=== PATIENT | male | born 1975 | race Hispanic/Latino ===

== ENCOUNTER 2019-02-10 09:34 | Emergency (ER) | payer OTHER, SELFPAY ==
[2019-02-10] VITALS (8 sets, daily range): BP systolic 105–136; BP diastolic 50–79; PULSE 59–81; RESP 16–25; TEMP 36.8; O2SAT 95–100; BMI 34.9
--- NOTE | 2019-02-10 09:59 | DI.RAD.S_ITS ---
PROCEDURE: XR CHEST 1V INDICATIONS: chest pain TECHNIQUE: One view of the chest was acquired. COMPARISON: None. FINDINGS: Surgical changes and devices: None. Lungs and pleura: Lungs are clear. No pleural effusions or pneumothorax. Mediastinum: Mediastinal contours appear normal. Heart size is normal. Bones and chest wall: No suspicious bony lesions. Overlying soft tissues appear unremarkable. IMPRESSION: Mildly reduced inspiratory line, source of chest pain seen. Dictated by: Sergio Mcgee M.D. on 02/10/2019 at 10:12 Approved by: Sergio Mcgee M.D. on 02/10/2019 at 10:12
[2019-02-10 10:03] LABS: Add Manual Diff / Slide Review NO; Basophils Absolute Auto 0 /uL (0-100); Basophils Percent Auto 0.6 % (0-2); Eosinophils Absolute Auto 200 /uL (0-450); Eosinophils Percent Auto 2.7 % (2-4); Hematocrit 43.9 % (41-53); Hemoglobin 15.3 g/dL (13.5-17.5); Lymphocytes Absolute Auto 2100 /uL (1100-4500); Lymphocytes Percent Auto 32.1 % (25-40); Mean Corpuscular HGB Conc 34.7 % (30-36); Mean Corpuscular Hemoglobin 29.2 PG (26-34); Monocytes Absolute Auto 400 /uL (0-900); Monocytes Percent Auto 6.4 % (3-14); Neutrophils Absolute Auto 3800 /uL (1500-7000); Neutrophils Percent Auto 58.2 % (50-75); Platelet Count 223 X10^3/uL (150-400); Red Blood Cell Count 5.23 X10^6/uL (4.5-5.9); Red Cell Distribution Width 13.2 % (11.6-14.8); White Blood Cell Count 6.5 X10^3/uL (4.5-11.0)
[2019-02-10 10:06] LABS: Prothrombin Time 11.2 SECONDS (10.1-12.7)
[2019-02-10 10:09] LABS: PTT Partial Thromboplastin Tim 31 SECONDS (26.4-36.2)
[2019-02-10] MEDS: ASPIRIN 81 MG TAB 324 MG PO (10:10)
[2019-02-10 10:12] LABS: Alanine Aminotransferase 48 IU/L (21-72); Albumin 4.6 g/dL (3.5-5.0); Albumin Globulin Ratio 1.5 (1.0-2.8); Alkaline Phosphatase 68 U/L (38-126); Aspartate Aminotransferase 32 IU/L (17-59); Bilirubin Total 0.8 mg/dL (0.2-1.3); Blood Urea Nitrogen 14 mg/dL (9-20); Calcium 9.5 mg/dL (8.4-10.2); Carbon Dioxide 28 mmol/L (22-32); Chloride 102 mmol/L (98-107); Creatine Kinase 114 U/L (55-170); Estimated Glomerular Filt Rate > 60.0 mL/min (>60); Glucose 107 mg/dL (70-100); HEMOLYSIS < 15 (0-50); Lipase 60 U/L (23-300); Sodium 138 mmol/L (137-145); Total Protein 7.6 g/dL (6.3-8.2)
[2019-02-10] MEDS: NITROGLYCERIN 0.4 MG SL TAB SL ×2 (10:13→11:29)
[2019-02-10 10:23] LABS: Troponin I < 0.012 ng/mL (0.01-0.034)
[2019-02-10 10:27] LABS: CKMB % Relative Index 0.3 % (1.5-5.0); Creatine Kinase MB 0.35 ng/mL (<2.37)
--- NOTE | 2019-02-10 11:01 | ED.CHESTPAIN ---
HPI - Chest Pain General Chief Complaint: Chest Pain Stated Complaint: Chest Pain /Dizziness Time Seen by Provider: 02/10/19 10:51 Source: patient Mode of arrival: ambulatory Limitations: no limitations History of Present Illness HPI narrative: This is a 43-year-old male comes to the emergency department with complaint of chest pain. Patient states it feels like a pressure, the left side of his chest. Does not really radiate anywhere. Patient states it started Friday night. He was just walking around at [facility]. He states he was any been hiking or doing anything physical. He states sort of waxes and wanes in intensity but is been present the entire time. There do not seem to be any exacerbating factors, exertion, movement, eating food and the seemed to make anything worse. He has not felt short of breath. He denies any issues with bowel movements, issues with urination. No swelling in his lower extremities. He will feel little bit dizzy when it is intense and a little bit sweaty. Occasionally a little nauseated. He does not recall having any major strains or lifting heavy equipment. He did have his physical readiness test a week ago. He does not have any past medical history. He has not had any prior surgeries. He did donate bone marrow to another individual but has had no other interventions. He denies any family history in his parents or siblings for cardiac, pulmonary or blood clots. He has a paternal grandfather who had heart problems. He does not smoke. He does drink alcohol typically on the weekends. He states it is very variable home much. He denies any illicit. He is in the [employer]. A prior EKG because of prior job assignment. Related Data Home Medications Medication Instructions Recorded Confirmed No Known Home Medications 02/10/19 02/10/19 Allergies Allergy/AdvReac Type Severity Reaction Status Date / Time No Known Drug Allergies Allergy Verified 02/10/19 10:04 Review of Systems Review of Systems ROS Unobtainable: All systems reviewed & are unremarkable except as noted in HPI and below Constitutional Denies chills and Denies frequent falls Eyes Reports blurry vision (with symptoms.) ENT Ears, Nose, Mouth, and Throat: Denies nasal congestion Cardiovascular Reports chest pain (Not associated with rest or activity.), Reports diaphoresis, Denies syncope, Denies rapid heart rate, Denies edema, Reports lightheadedness, Reports radiating jaw, neck or arm pain (tingling), Denies palpitations, Denies dyspnea and Denies dyspnea on exertion Respiratory Denies chest congestion, Denies cough, Denies pain on inspiration, Denies pain with cough, Denies dyspnea, Denies dyspnea on exertion and Denies wheezing Gastrointestinal Gastrointestinal: Denies abdominal pain, Denies change in bowel habits, Denies diarrhea, Reports nausea (Occasional with symptoms) and Denies vomiting Genitourinary Denies hematuria, Denies dysuria, Denies flank pain, Denies urinary frequency, Denies urinary incontinence and Denies urinary urgency Musculoskeletal Denies back pain Integumentary/Breasts Denies rash and Denies unusual bruising Neurologic Denies syncope and Denies frequent falls Endocrine Denies palpitations Allergic/Immunologic Denies wheezing PFSH Surgical History (Updated 02/10/19 @ 11:06 by Nohemy Zarco DO) Bone marrow donor (Inactive) Social History (Updated 02/10/19 @ 11:07 by Nohemy Zarco DO) Smoking Status: Never smoker alcohol intake: current substance use type: does not use Social History (Updated 02/10/19 @ 11:07 by Nohemy Zarco DO) Smoking Status: Never smoker alcohol intake: current substance use type: does not use Exam Narrative Exam Narrative: GENERAL: Alert and oriented x three, slightly overweight but well-appearing male in no acute distress. HEENT: Head normocephalic, atraumatic, EOMI, pupils reactive, face symmetric, moist mucous membranes NECK: Supple, full range of motion CARDIOVASCULAR: Regular rate and rhythm without murmurs, rubs or gallops. No edema bilateral lower extremities. Nontender to palpation. RESPIRATORY: Breath sounds equal bilaterally, no wheezes rales or rhonchi. ABDOMEN: Soft, nontender. Normoactive bowel sounds all 4 quadrants. No guarding or rebound, rigidity, no mass : No CVA tenderness EXTREMITIES: Normal range of motion, no clubbing or edema. Neurovascularly intact NEUROLOGICAL: Cranial nerves II through XII grossly intact. Moving all extremities SKIN: Warm, dry, no petechiae, no rashes or lesions. Initial Vital Signs Initial Vital Signs: Vital Signs Temperature 98.3 F 02/10/19 09:36 Pulse Rate 67 02/10/19 09:36 Respiratory Rate 20 02/10/19 09:36 Blood Pressure 136/79 05/29/19 09:36 Pulse Oximetry 98 02/10/19 09:36 Scores HEART Score Heart Score history: Moderately Suspicious Heart Score EKG: Non-Specific repolarization disturbance Heart Score Age: < 45 years old Heart Score risk factors: No known risk factors Heart Score troponin: < or = to normal limit Heart Score Total: 2 Course Orders Ordered: ED Orders 02/10/19 09:49 Complete Blood Count AUTO DIFF Stat Comprehensive Metabolic Panel Stat D Dimer Stat Lipase Stat Partial Thromboplastin Time Stat Prothrombin Time INR Stat Troponin & CK Cardiac Panel Stat 02/10/19 09:59 XR chest 1V Stat 02/10/19 10:11 EKG-12 Lead Routine Discontinued Medications Aspirin (Aspirin Chew) 324 mg PO NOW ONE Stop: 02/10/19 10:06 Last Admin: 02/10/19 10:10 Dose: 324 mg Nitroglycerin (Nitrostat) 0.4 mg SL [id number] PRN PRN Reason: Chest Pain Last Admin: 02/10/19 11:29 Dose: 0.4 mg Admin: 02/10/19 10:13 Dose: 0.4 mg Vital Signs - 8 hr 02/10/19 11:00 02/10/19 11:27 02/10/19 11:29 Pulse Rate 62 81 59 L Respiratory Rate 25 H 16 Blood Pressure 121/76 Blood Pressure [Left Arm] 113/69 121/76 Pulse Oximetry 98 99 02/10/19 12:13 Pulse Rate 63 Respiratory Rate 18 Blood Pressure 105/66 Blood Pressure [Left Arm] Pulse Oximetry 100 MDM - Chest Pain Lab Data Attestation: I reviewed the patient's lab results. Result diagrams: 02/10/19 09:49 02/10/19 09:49 Lab Results 02/10/19 02/10/19 02/10/19 Range/Units 09:49 09:49 09:49 WBC 6.5 (4.5-11.0) X10^3/uL RBC 5.23 (4.5-5.9) X10^6/uL Hgb 15.3 (13.5-17.5) g/dL Hct 43.9 (41-53) % MCV 84.0 (80-100) fL MCH 29.2 (26-34) PG MCHC 34.7 (30-36) % RDW 13.2 (11.6-14.8) % Plt Count 223 (150-400) X10^3/uL Neut % (Auto) 58.2 (50-75) % Lymph % (Auto) 32.1 (25-40) % [place] % (Auto) 6.4 (3-14) % Eos % (Auto) 2.7 (2-4) % Baso % (Auto) 0.6 (0-2) % Neut # (Auto) 3800 (4654-0653) /uL Lymph # (Auto) 2100 (5017-1787) /uL [place] # (Auto) 400 (0-900) /uL Eos # (Auto) 200 (0-450) /uL Baso # (Auto) 0 (0-100) /uL PT 11.2 (10.1-12.7) SECONDS INR 1.0 (0.9-1.3) APTT 31 (26.4-36.2) SECONDS D-Dimer (<230) ng/mL Sodium 138 (137-145) mmol/L Potassium 4.0 (3.4-5.1) mmol/L Chloride 102 (98-107) mmol/L Carbon Dioxide 28 (22-32) mmol/L BUN 14 (9-20) mg/dL Creatinine 1.00 (0.66-1.25) mg/dL Estimated GFR > 60.0 (>60) mL/min BUN/Creatinine Ratio 14.0 (6-22) Glucose 107 H (70-100) mg/dL Calcium 9.5 (8.4-10.2) mg/dL Total Bilirubin 0.8 (0.2-1.3) mg/dL AST 32 (17-59) IU/L ALT 48 (21-72) IU/L Alkaline Phosphatase 68 (38-126) U/L Total Creatine Kinase 114 (55-170) U/L CK-MB (CK-2) 0.35 (<2.37) ng/mL CK-MB (CK-2) Rel Index 0.3 L (1.5-5.0) % Troponin I < 0.012 (0.01-0.034) ng/mL Total Protein 7.6 (6.3-8.2) g/dL Albumin 4.6 (3.5-5.0) g/dL Globulin 3.0 (1.7-4.1) g/dL Albumin/Globulin Ratio 1.5 (1.0-2.8) Lipase 60 (23-300) U/L 02/10/19 Range/Units 09:49 WBC (4.5-11.0) X10^3/uL RBC (4.5-5.9) X10^6/uL Hgb (13.5-17.5) g/dL Hct (41-53) % MCV (80-100) fL MCH (26-34) PG MCHC (30-36) % RDW (11.6-14.8) % Plt Count (150-400) X10^3/uL Neut % (Auto) (50-75) % Lymph % (Auto) (25-40) % [place] % (Auto) (3-14) % Eos % (Auto) (2-4) % Baso % (Auto) (0-2) % Neut # (Auto) (7747-4548) /uL Lymph # (Auto) (4313-3877) /uL [place] # (Auto) (0-900) /uL Eos # (Auto) (0-450) /uL Baso # (Auto) (0-100) /uL PT (10.1-12.7) SECONDS INR (0.9-1.3) APTT (26.4-36.2) SECONDS D-Dimer < 200 (<230) ng/mL Sodium (137-145) mmol/L Potassium (3.4-5.1) mmol/L Chloride (98-107) mmol/L Carbon Dioxide (22-32) mmol/L BUN (9-20) mg/dL Creatinine (0.66-1.25) mg/dL Estimated GFR (>60) mL/min BUN/Creatinine Ratio (6-22) Glucose (70-100) mg/dL Calcium (8.4-10.2) mg/dL Total Bilirubin (0.2-1.3) mg/dL AST (17-59) IU/L ALT (21-72) IU/L Alkaline Phosphatase (38-126) U/L Total Creatine Kinase (55-170) U/L CK-MB (CK-2) (<2.37) ng/mL CK-MB (CK-2) Rel Index (1.5-5.0) % Troponin I (0.01-0.034) ng/mL Total Protein (6.3-8.2) g/dL Albumin (3.5-5.0) g/dL Globulin (1.7-4.1) g/dL Albumin/Globulin Ratio (1.0-2.8) Lipase (23-300) U/L Imaging Data Chest x-ray: Radiologist's impression: [address] [address] XRay Report Signed Patient: Monty Hollingsworth OMR#: [id number] : 1975Acct:[id number] Age/Sex: 43 / MDate of Service: 02/10/19 Loc: ED Accession Number: [id number] Procedure: XR chest 1V Ordering Provider: Nohemy Zarco D.O. PROCEDURE: XR CHEST 1V INDICATIONS: chest pain TECHNIQUE: One view of the chest was acquired. COMPARISON: None. FINDINGS: Surgical changes and devices: None. Lungs and pleura: Lungs are clear. No pleural effusions or pneumothorax. Mediastinum: Mediastinal contours appear normal. Heart size is normal. Bones and chest wall: No suspicious bony lesions. Overlying soft tissues appear unremarkable. IMPRESSION: Mildly reduced inspiratory line, source of chest pain seen. Dictated by: Sergio Mcgee M.D. on 02/10/2019 at 10:12 Approved by: Sergio Mcgee M.D. on 02/10/2019 at 10:12 ECG Data Attestation: I personally reviewed and interpreted this ECG as follows: Prior ECG tracings: available for review (2015 from [facility]) Interpretation: This is a sinus rhythm with a rate of 64, P are 143 QRS of 108 QTC of 405. Patient has a Q-wave in 1 aVL. Patient has T-wave inversion in 3 and AVF. No other acute changes appreciated. Patient has a 2nd EKG that shows sinus bradycardia with a rate of 58 appear 149 QRS of 107 QTC of 411. Also appears similar in ST segments as the 1st. Patient has EKG from October 06, 2015. Patient has Q-waves in 1 and aVL he has the same ST changes as today's EKG with no other new changes. On that EKG rate was 60 P are is 142 QRS was 108 with a QTC of 428. MDM Narrative Medical decision making narrative: Discussed with patient he has had chest pain but it has been constant Friday night without ever resolving with normal troponin and no new EKG changes after able to obtain an old 1 from 2016 from the [facility]. Discussed with patient he also has low risk as far as past medical history, family history. Patient will follow up with primary care. I did discuss that stress testing might be an appropriate evaluation for him. Although it could potentially be something different causing his symptoms. Discharge Plan Departure Patient Disposition: Home Clinical Impression: Chest pain Discharge Date/Time: 02/10/19 12:13 Interventions: ED Discharge Assessment Last Done: 02/10/19 12:13 Instructions: DI for Chest Pain Activity Restrictions/Additional Instructions: Follow-up with her primary care in or Cardiology in the next 24-72 hours to recheck and discuss about possible stress testing. Continue aspirin 81 mg daily. Return to the emergency department for fevers, new shortness of breath, new or changing chest pain or pressure, passing out, lightheadedness, persistent vomiting or other new or concerning symptoms. Prescriptions: No Action No Known Home Medications RF: 0 Referrals: Kleber Mayorga MD [Physician] -
--- NOTE | 2019-02-10 11:09 | ED_ITS ---
HPI - Chest Pain General Chief Complaint: Chest Pain Stated Complaint: Chest Pain /Dizziness Time Seen by Provider: 02/10/19 10:51 Source: patient Mode of arrival: ambulatory Limitations: no limitations History of Present Illness HPI narrative: This is a 43-year-old male comes to the emergency department with complaint of chest pain. Patient states it feels like a pressure, the left side of his chest. Does not really radiate anywhere. Patient states it started Friday night. He was just walking around at [facility]. He states he was any been hiking or doing anything physical. He states sort of waxes and wanes in intensity but is been present the entire time. There do not seem to be any exacerbating factors, exertion, movement, eating food and the seemed to make anything worse. He has not felt short of breath. He denies any issues with bowel movements, issues with urination. No swelling in his lower extremities. He will feel little bit dizzy when it is intense and a little bit sweaty. Occasionally a little nauseated. He does not recall having any major strains or lifting heavy equipment. He did have his physical readiness test a week ago. He does not have any past medical history. He has not had any prior surgeries. He did donate bone marrow to another individual but has had no other interventions. He denies any family history in his parents or siblings for cardiac, pulmonary or blood clots. He has a paternal grandfather who had heart problems. He does not smoke. He does drink alcohol typically on the weekends. He states it is very variable home much. He denies any illicit. He is in the [employer]. A prior EKG because of prior job assignment. Related Data Home Medications Medication Instructions Recorded Confirmed No Known Home Medications 02/10/19 02/10/19 Allergies Allergy/AdvReac Type Severity Reaction Status Date / Time No Known Drug Allergies Allergy Verified 02/10/19 10:04 Review of Systems Review of Systems ROS Unobtainable: All systems reviewed & are unremarkable except as noted in HPI and below Constitutional Denies chills and Denies frequent falls Eyes Reports blurry vision (with symptoms.) ENT Ears, Nose, Mouth, and Throat: Denies nasal congestion Cardiovascular Reports chest pain (Not associated with rest or activity.), Reports diaphoresis, Denies syncope, Denies rapid heart rate, Denies edema, Reports lightheadedness, Reports radiating jaw, neck or arm pain (tingling), Denies palpitations, Denies dyspnea and Denies dyspnea on exertion Respiratory Denies chest congestion, Denies cough, Denies pain on inspiration, Denies pain with cough, Denies dyspnea, Denies dyspnea on exertion and Denies wheezing Gastrointestinal Gastrointestinal: Denies abdominal pain, Denies change in bowel habits, Denies diarrhea, Reports nausea (Occasional with symptoms) and Denies vomiting Genitourinary Denies hematuria, Denies dysuria, Denies flank pain, Denies urinary frequency, Denies urinary incontinence and Denies urinary urgency Musculoskeletal Denies back pain Integumentary/Breasts Denies rash and Denies unusual bruising Neurologic Denies syncope and Denies frequent falls Endocrine Denies palpitations Allergic/Immunologic Denies wheezing PFSH Surgical History (Updated 02/10/19 @ 11:06 by Nohemy Zarco DO) Bone marrow donor (Inactive) Social History (Updated 02/10/19 @ 11:07 by Nohemy Zarco DO) Smoking Status: Never smoker alcohol intake: current substance use type: does not use Social History (Updated 02/10/19 @ 11:07 by Nohemy Zarco DO) Smoking Status: Never smoker alcohol intake: current substance use type: does not use Exam Narrative Exam Narrative: GENERAL: Alert and oriented x three, slightly overweight but well-appearing male in no acute distress. HEENT: Head normocephalic, atraumatic, EOMI, pupils reactive, face symmetric, moist mucous membranes NECK: Supple, full range of motion CARDIOVASCULAR: Regular rate and rhythm without murmurs, rubs or gallops. No edema bilateral lower extremities. Nontender to palpation. RESPIRATORY: Breath sounds equal bilaterally, no wheezes rales or rhonchi. ABDOMEN: Soft, nontender. Normoactive bowel sounds all 4 quadrants. No guarding or rebound, rigidity, no mass : No CVA tenderness EXTREMITIES: Normal range of motion, no clubbing or edema. Neurovascularly int act NEUROLOGICAL: Cranial nerves II through XII grossly intact. Moving all extremities SKIN: Warm, dry, no petechiae, no rashes or lesions. Initial Vital Signs Initial Vital Signs: Vital Signs Temperature 98.3 F 02/10/19 09:36 Pulse Rate 67 02/10/19 09:36 Respiratory Rate 20 02/10/19 09:36 Blood Pressure 136/79 02/10/19 09:36 Pulse Oximetry 98 02/10/19 09:36 Scores HEART Score Heart Score history: Moderately Suspicious Heart Score EKG: Non-Specific repolarization disturbance Heart Score Age: < 45 years old Heart Score risk factors: No known risk factors Heart Score troponin: < or = to normal limit Heart Score Total: 2 Course Orders Ordered: ED Orders 02/10/19 09:49 Complete Blood Count AUTO DIFF Stat Comprehensive Metabolic Panel Stat D Dimer Stat Lipase Stat Partial Thromboplastin Time Stat Prothrombin Time INR Stat Troponin & CK Cardiac Panel Stat 02/10/19 09:59 XR chest 1V Stat 02/10/19 10:11 EKG-12 Lead Routine Discontinued Medications Aspirin (Aspirin Chew) 324 mg PO NOW ONE Stop: 02/10/19 10:06 Last Admin: 02/10/19 10:10 Dose: 324 mg Nitroglycerin (Nitrostat) 0.4 mg SL [id number] PRN PRN Reason: Chest Pain Last Admin: 02/10/19 11:29 Dose: 0.4 mg Admin: 02/10/19 10:13 Dose: 0.4 mg Vital Signs - 8 hr 02/10/19 11:00 02/10/19 11:27 02/10/19 11:29 Pulse Rate 62 81 59 L Respiratory Rate 25 H 16 Blood Pressure 121/76 Blood Pressure [Left Arm] 113/69 121/76 Pulse Oximetry 98 99 02/10/19 12:13 Pulse Rate 63 Respiratory Rate 18 Blood Pressure 105/66 Blood Pressure [Left Arm] Pulse Oximetry 100 MDM - Chest Pain Lab Data Attestation: I reviewed the patient's lab results. Result diagrams: 02/10/19 09:49 02/10/19 09:49 Lab Results 02/10/19 02/10/19 02/10/19 Range/Units 09:49 09:49 09:49 WBC 6.5 (4.5-11.0) X10^3/uL RBC 5.23 (4.5-5.9) X10^6/uL Hgb 15.3 (13.5-17.5) g/dL Hct 43.9 (41-53) % MCV 84.0 (80-100) fL MCH 29.2 (26-34) PG MCHC 34.7 (30-36) % RDW 13.2 (11.6-14.8) % Plt Count 223 (150-400) X10^3/uL Neut % (Auto) 58.2 (50-75) % Lymph % (Auto) 32.1 (25-40) % [place] % (Auto) 6.4 (3-14) % Eos % (Auto) 2.7 (2-4) % Baso % (Auto) 0.6 (0-2) % Neut # (Auto) 3800 (3878-2256) /uL Lymph # (Auto) 2100 (7725-8369) /uL [place] # (Auto) 400 (0-900) /uL Eos # (Auto) 200 (0-450) /uL Baso # (Auto) 0 (0-100) /uL PT 11.2 (10.1-12.7) SECONDS INR 1.0 (0.9-1.3) APTT 31 (26.4-36.2) SECONDS D-Dimer (<230) ng/mL Sodium 138 (137-145) mmol/L Potassium 4.0 (3.4-5.1) mmol/L Chloride 102 (98-107) mmol/L Carbon Dioxide 28 (22-32) mmol/L BUN 14 (9-20) mg/dL Creatinine 1.00 (0.66-1.25) mg/dL Estimated GFR > 60.0 (>60) mL/min BUN/Creatinine Ratio 14.0 (6-22) Glucose 107 H (70-100) mg/dL Calcium 9.5 (8.4-10.2) mg/dL Total Bilirubin 0.8 (0.2-1.3) mg/dL AST 32 (17-59) IU/L ALT 48 (21-72) IU/L Alkaline Phosphatase 68 (38-126) U/L Total Creatine Kinase 114 (55-170) U/L CK-MB (CK-2) 0.35 (<2.37) ng/mL CK-MB (CK-2) Rel Index 0.3 L (1.5-5.0) % Troponin I < 0.012 (0.01-0.034) ng/mL Total Protein 7.6 (6.3-8.2) g/dL Albumin 4.6 (3.5-5.0) g/dL Globulin 3.0 (1.7-4.1) g/dL Albumin/Globulin Ratio 1.5 (1.0-2.8) Lipase 60 (23-300) U/L 02/10/19 Range/Units 09:49 WBC (4.5-11.0) X10^3/uL RBC (4.5-5.9) X10^6/uL Hgb (13.5-17.5) g/dL Hct (41-53) % MCV (80-100) fL MCH (26-34) PG MCHC (30-36) % RDW (11.6-14.8) % Plt Count (150-400) X10^3/uL Neut % (Auto) (50-75) % Lymph % (Auto) (25-40) % [place] % (Auto) (3-14) % Eos % (Auto) (2-4) % Baso % (Auto) (0-2) % Neut # (Auto) (5538-5559) /uL Lymph # (Auto) (8592-3195) /uL [place] # (Auto) (0-900) /uL Eos # (Auto) (0-450) /uL Baso # (Auto) (0-100) /uL PT (10.1-12.7) SECONDS INR (0.9-1.3) APTT (26.4-36.2) SECONDS D-Dimer < 200 (<230) ng/mL Sodium (137-145) mmol/L Potassium (3.4-5.1) mmol/L Chloride (98-107) mmol/L Carbon Dioxide (22-32) mmol/L BUN (9-20) mg/dL Creatinine (0.66-1.25) mg/dL Estimated GFR (>60) mL/min BUN/Creatinine Ratio (6-22) Glucose (70-100) mg/dL Calcium (8.4-10.2) mg/dL Total Bilirubin (0.2-1.3) mg/dL AST (17-59) IU/L ALT (21-72) IU/L Alkaline Phosphatase (38-126) U/L Total Creatine Kinase (55-170) U/L CK-MB (CK-2) (<2.37) ng/mL CK-MB (CK-2) Rel Index (1.5-5.0) % Troponin I (0.01-0.034) ng/mL Total Protein (6.3-8.2) g/dL Albumin (3.5-5.0) g/dL Globulin (1.7-4.1) g/dL Albumin/Globulin Ratio (1.0-2.8) Lipase (23-300) U/L Imaging Data Chest x-ray: Radiologist's impression: [address] [address] XRay Report Signed Patient: Monty Hollingsworth OMR#: [id number] : 1975Acct:[id number] Age/Sex: 43 / MDate of Service: 02/10/19 Loc: ED Accession Number: [id number] Procedure: XR chest 1V Ordering Provider: Nohemy Zarco D.O. PROCEDURE: XR CHEST 1V INDICATIONS: chest pain TECHNIQUE: One view of the chest was acquired. COMPARISON: None. FINDINGS: Surgical changes and devices: None. Lungs and pleura: Lungs are clear. No pleural effusions or pneumothorax. Mediastinum: Mediastinal contours appear normal. Heart size is normal. Bones and chest wall: No suspicious bony lesions. Overlying soft tissues appear unremarkable. IMPRESSION: Mildly reduced inspiratory line, source of chest pain seen. Dictated by: Sergio Mcgee M.D. on 02/10/2019 at 10:12 Approved by: Sergio Mcgee M.D. on 02/10/2019 at 10:12 ECG Data Attestation: I personally reviewed and interpreted this ECG as follows: Prior ECG tracings: available for review (2015 from [facility]) Interpretation: This is a sinus rhythm with a rate of 64, P are 143 QRS of 108 QTC of 405. Patient has a Q-wave in 1 aVL. Patient has T-wave inversion in 3 and AVF. No other acute changes appreciated. Patient has a 2nd EKG that shows sinus bradycardia with a rate of 58 appear 149 QRS of 107 QTC of 411. Also appears similar in ST segments as the 1st. Patient has EKG from October 06 16. Patient has Q-waves in 1 and aVL he has the same ST changes as today's EKG with no other new changes. On that EKG rate was 60 P are is 142 QRS was 108 with a QTC of 428. [facility] Narrative Medical decision making narrative: Discussed with patient he has had chest pain but it has been constant Friday night without ever resolving with normal troponin and no new EKG changes after able to obtain an old 1 from 2016 from the [employer]. Discussed with patient he also has low risk as far as past medical history, family history. Patient will follow up with primary care. I did discuss that stress testing might be an appropriate evaluation for him. Although it could potentially be something different causing his symptoms. Discharge Plan Departure Patient Disposition: Home Clinical Impression: Chest pain Discharge Date/Time: 02/10/19 12:13 Interventions: ED Discharge Assessment Last Done: 02/10/19 12:13 Instructions: DI for Chest Pain Activity Restrictions/Additional Instructions: Follow-up with her primary care in or Cardiology in the next 24-72 hours to recheck and discuss about possible stress testing. Continue aspirin 81 mg daily. Return to the emergency department for fevers, new shortness of breath, new or changing chest pain or pressure, passing out, lightheadedness, persistent vomiti ng or other new or concerning symptoms. Prescriptions: No Action No Known Home Medications RF: 0 Referrals: Kleber Mayorga MD [Physician] -
[2019-02-10 11:34] LABS: D Dimer < 200 ng/mL (<230)
== END 2019-02-10 12:13 | disposition home or self-care (01) ==
PROVIDERS: Emergency Provider Emergency Medicine
DX: R07.9 Chest pain, unspecified (principal); R42 Dizziness and giddiness
CPT/HCPCS: 36591; 71045; 80053; 82550; 82553; 83690; 84484; 85025; 85379; 85610; 85730; 93005; 99283; 99285

== ENCOUNTER → 2024-07-02 11:29 | Outpatient (CLI) | payer OTHER, SELFPAY ==
[2024-07-02 12:28] LABS: Add Manual Diff / Slide Review NO; Basophils Absolute Auto 100 /uL (0-100); Basophils Percent Auto 0.7 % (0-2); Eosinophils Absolute Auto 200 /uL (0-450); Eosinophils Percent Auto 2.5 % (2-4); Hematocrit 43.5 % (41-53); Lymphocytes Absolute Auto 2200 /uL (1100-4500); Lymphocytes Percent Auto 28.7 % (25-40); Mean Corpuscular HGB Conc 34.4 % (30-36); Mean Corpuscular Hemoglobin 29.8 PG (26-34); Mean Corpuscular Volume 86.7 fL (80-100); Monocytes Absolute Auto 500 /uL (0-900); Neutrophils Absolute Auto 4800 /uL (1500-7000); Neutrophils Percent Auto 61.1 % (50-75); Platelet Count 224 X10^3/uL (150-400); Red Blood Cell Count 5.02 X10^6/uL (4.5-5.9); Red Cell Distribution Width 13.9 % (11.6-14.8); White Blood Cell Count 7.8 X10^3/uL (4.5-11.0)
[2024-07-02 12:51] LABS: Albumin 4.4 g/dL (3.5-5.0); BUN Creatinine Ratio 9.7 (6-22); Blood Urea Nitrogen 9 mg/dL (9-20); Calcium 9.3 mg/dL (8.4-10.2); Carbon Dioxide 22 mmol/L (22-32); Chloride 106 mmol/L (98-107); Estimated Glomerular Filt Rate > 60 mL/min (>60); Glucose 96 mg/dL (70-100); HEMOLYSIS < 15 (0-50); Potassium 4.3 mmol/L (3.4-5.1); Sodium 137 mmol/L (137-145)
[2024-07-02 12:58] LABS: Prealbumin 26.6 mg/dL (17.6-36.0)
[2024-07-02 16:12] LABS: Vitamin D 25 Hydroxy (D3) 29.1 ng/mL (30.0-100.0)
== END ==
LOC: LAB 11:30
PROVIDERS: Referring Provider Orthopaedic Surgery Adult Reconstructive Orthopaedic Surgery; Visit Provider Orthopaedic Surgery Adult Reconstructive Orthopaedic Surgery
DX: Z01.812 Encounter for preprocedural laboratory examination (principal); R77.0 Abnormality of albumin; E55.9 Vitamin D deficiency, unspecified; R73.9 Hyperglycemia, unspecified
CPT/HCPCS: 36415; 80048; 82040; 82306; 83036; 84134; 85025

== ENCOUNTER 2024-08-23 06:08 | Day surgery (SDC) | payer OTHER, SELFPAY ==
[2024-08-19 09:48] VITALS: BMI 34.9
[2024-08-23] VITALS (11 sets, daily range): BP systolic 90–128; BP diastolic 51–80; PULSE 69–100; RESP 10–24; TEMP 36.1–36.8; O2SAT 96–100; BMI 38.5
--- NOTE | 2024-08-23 | DI.RAD.S_ITS ---
PROCEDURE: XR HIP W PEL IF DONE RT 2V INDICATIONS: TOTAL HIP TECHNIQUE: Multiple spot fluoroscopic intraoperative images of the right hip and pelvis. COMPARISON: [facility], CR, XR PELVIS WITH LATERAL HIP RIGHT, 10/09/2023, 16:37. [facility], CR, XR HIP W PEL IF DONE RT 2V, 08/23/2024, 10:28. FINDINGS: Intraoperative spot fluoroscopic images demonstrate placement of a right total hip arthroplasty with hardware components in expected positions. IMPRESSION: Fluoroscopy was used for intraoperative guidance. Approved by: Fahad Fischer M.D. on 08/23/2024 at 16:28
--- NOTE | 2024-08-23 06:00 | DI.RAD.S_ITS ---
PROCEDURE: XR HIP W PEL IF DONE RT 2V INDICATIONS: SENG TECHNIQUE: AP pelvis and lateral view of the hip acquired. COMPARISON: [facility], CR, XR HIP W PEL IF DONE RT 2V, 08/23/2024, 8:54. FINDINGS: Bones: Patient is status post right hip arthroplasty, with hardware components in expected positions. The hip joint appears congruent. The visualized bony structures appear intact. Soft tissues: Overlying postoperative changes are noted. No suspicious soft tissue densities. IMPRESSION: Expected post-operative appearance of a hip arthroplasty. Dictated by: Librado Barnhart M.D. on 08/23/2024 at 10:47 Approved by: Librado Barnhart M.D. on 08/23/2024 at 10:48
[2024-08-23] MEDS: LACTATED RINGERS 1,000 ML 42 ML IV ×2 (06:43→09:19)
[2024-08-23] MEDS: CELECOXIB 200 MG CAPSULE 400 MG PO (06:49)
[2024-08-23] MEDS: ACETAMINOPHEN 325 MG TABLET 975 MG PO (06:49)
--- NOTE | 2024-08-23 07:46 | P.HP_ITS ---
History of Present Illness History of Present Illness Chief complaint: Right Total Hip Arthroplasty/Anterior Approach Narrative: CHIEF COMPLAINT: Right total hip replacement. PATIENT SUMMARY: The patient presented for a right total hip replacement. HISTORY OF PRESENT ILLNESS: The patient presented for a scheduled right total hip replacement. The patient had previously been seen three months ago for evaluation. The surgery was initially planned to be performed at a surgery center, but logistical issues necessitated the change to the current facility. The patient did not report any new health concerns or questions regarding the procedure. The goal of the surgery was to improve mobility, specifically the ability to bend over and put on socks, and to address the difference in leg lengths due to hip arthritis. The patient's right leg was noted to be shorter, a common finding with hip arthritis, and the surgery aimed to correct this imbalance. The patient expressed readiness for the procedure and did not have any immediate questions about surgical risks, as they had been reviewed via a pre-surgery educational video. PAST MEDICAL HISTORY: Not available. PAST SURGICAL HISTORY: Not available. MEDICATIONS: Not available. ALLERGIES: Not available. 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 FAMILY HISTORY: Not available. REVIEW OF SYSTEMS: Musculoskeletal: Positive for right hip pain and limited mobility. Negative for left hip pain. ASSESSMENT: 1. Right Hip Osteoarthritis: The patient presented for a right total hip replacement due to osteoarthritis causing pain and leg length discrepancy. The surgical procedure aimed to improve mobility and address the shortness of the right leg. 2. Leg Length Discrepancy: The patient had a noticeable shortening of the right leg attributed to hip arthritis. The surgical plan included correcting the discrepancy. PLAN: Treatment: - Right total hip replacement surgery was performed to address osteoarthritis and correct leg length discrepancy. Tests: - Preoperative and postoperative assessments as per surgical protocol. Patient Education: - The patient was instructed on the risks associated with surgery through a pre- surgery educational video. - Advised on postoperative mobility, including using aspirin and walking around during air travel to prevent blood clots. Follow-Up: - Arrangements were made for post-surgical follow-up to monitor recovery and address any complications. Disposition: - The plan included discharging the patient home post-surgery, with instructions for mobility and recovery. [facility] Medical History (Updated 08/19/24 @ 10:06 by Audelia Santiago RN) ADHD Psoriasis Osteoarthritis TAMMY on CPAP Surgical History (Updated 08/19/24 @ 10:06 by Audelia Santiago RN) History of hip surgery H/O vasectomy Bone marrow donor (~2013) Social History (Updated 02/10/19 @ 11:07 by Nohemy Zraco DO) household members: spouse and children Smoking Status: Current some day smoker alcohol intake: current substance use type: does not use Meds Home Medications and Allergies Home Medications Medication Instructions Recorded Confirmed Type No Known Home Medications 02/10/19 08/19/24 History Allergies Allergy/AdvReac Type Severity Reaction Status Date / Time No Known Drug Allergies Allergy Verified 08/23/24 06:36 Exam Vital Signs (past 8 hours): - 08/23/24 06:37 Temperature 97.6 F Pulse Rate 77 Respiratory Rate 16 Blood Pressure 125/79 Pulse Oximetry 97 Oxygen Delivery Method Room Air Oxygen Delivery Method Room Air Assessment & Plan Time-Based Coding :: [TOTAL MINUTES] spent with patient and on the chart (including review of chart, obtaining history, exam, reviewing outside data, placing orders, documenting exam and treatment plan, and counseling patient) on [DATE].
[2024-08-23] MEDS: CEFAZOLIN 2 GM/100 ML PREMIX 100 ML IV (08:11)
[2024-08-23] MEDS: TRANEXAMIC ACID 1,000 MG VIAL 1000 MG INJ ×2 (08:15→09:56)
--- NOTE | 2024-08-23 08:20 | SUR.OPER ---
Patient supine on padded [place] table, both arms on padded arm board at <90, both legs secured in padded traction boots and positioned per surgeon, padded post at patient's groin, pressure points checked and padded.
[2024-08-23] MEDS: ROPIVACAINE/EPI/CLONIDINE/KET 50 ML SYRINGE INJ (08:36)
[2024-08-23] MEDS: VANCOMYCIN 1,000 MG VIAL 1000 MG TOP (09:50)
--- NOTE | 2024-08-23 10:13 | PM.OP.1 ---
Operative Date/Time/Diagnoses Date of procedure: 08/23/24 Pre-op diagnosis: Right hip osteoarthritis Post-op diagnosis: same Procedure & Clinicians Procedure: Right total hip arthroplasty Same procedure as scheduled: Yes Surgeon: Kg Morales Telesales Specialist: Leda Chan Anesthesia Type: Spinal, Sedation and Local Operative Notes Estimated Blood Loss (mL): 350 Procedure in detail: Right Uncemented Direct Anterior Depuy Total Hip Arthroplasty: Implants: Lawai Gription size 56 cup?with +4 liner Actis femoral stem size 6 high offset? 36 mm +5 ceramic femoral head? Procedure Summary: This 48-year-old male patient is very muscular. Exposure in his case required a TFL release during the initial approach and a conjoined tendon release during the broaching process. Preoperatively his radiographs indicated equal leg lengths however clinically his operative side was slightly short. Based on this I aimed to lengthen him very slightly to leave him with equal leg lengths clinically. On his contralateral side he has some arthritic changes although he is asymptomatic there and does not have any plans for a left total hip in the near to intermediate future. I do anticipate that at some point in his life the left side we will need to be replaced in the added length from today's procedure should augment stability during that procedure to allow him to end with equal leg lengths after that 1 as well. He was templated for a 1.5 head and I utilized a 5 head. This was in addition to an offset liner because he had a very varus inclination to his proximal femur. Stability was excellent in all trialed parameters and he was slightly long although still within the lesser trochanter when using a long metal bar across the transitional line as a fluoroscopic reference to account for distortion. Therefore those implants were utilized Procedure in Detail: This patient was seen preoperatively and evaluated for hip pain which was refractory to numerous nonoperative treatment modalities. Their hip pain correlated with radiographic changes demonstrating significant degeneration in the hip joint. The risks and benefits of continued nonoperative management versus operative management were discussed at length and all of the patient?s questions were answered. Additional educational materials providing further details beyond our discussion in clinic were provided via a publicly available patient education video which included the incidence of medical complications associated with total hip arthroplasty, reasons for revision following total hip arthroplasty, and patient satisfaction rates following total hip arthroplasty. That video can be accessed at [email or web address] . With this understanding of the risks inherent to the procedure, the patient elected to move forward with operative management. Following preoperative optimization, the patient was scheduled for surgery. The patient was met in the preoperative holding area the day of the procedure and all questions were answered. The patient?s nares were swabbed with betadine in order to decolonize them from MRSA. Informed consent was signed and the right limb was marked with indelible ink.? The patient was brought back to the operating room where anesthesia was induced. The patient was transferred to the [place] table and all bony prominences were padded. The operative site was prepped and draped in the usual sterile fashion. Prior to incision, tranexamic acid and cefazolin were administered. Operative templating images were displayed demonstrating the anticipated implant sizes and correct operative extremity. A timeout procedure was performed verifying the patient?s identity, medical comorbidities, allergies, relevant medications, anesthesia type and the surgical plan. All present were in agreement. The assistance of a physician assistant professor of forestry was required for positioning, room setup, soft tissue retraction and wound closure. Without this assistance, the procedure would have been significantly more challenging and time consuming.?? A direct anterior approach to the hip was utilized. This was performed with a longitudinal incision through a Heuter interval. The incision was planned 2 cm distal and 2 cm lateral to the ASIS extending towards the lateral patella, in line with the muscle body of the TFL. Following incision, the subcutaneous tissue was dissected while taking care to avoid injury to the lateral femoral cutaneous nerve. I performed ATFL release, making a 90 degree turn proximally near the insertion of the TFL on the pelvis and projecting posteriorly to release tension off the TFL is he was noted to have an extremely muscular body habitus with the TFL overlying essentially the entire incision. The fascia overlying the TFL was identified by dissecting off the overlying fat and identifying perforating vessels to the TFL. The TFL fascia was incised and dissected away from the medial border of the TFL. A cobra retractor was placed over the superior femoral neck between the abductors and the hip capsule and used to reflect the TFL laterally. A [place] self-retainer was then placed in the distal aspect of the wound between the TFL and the rectus femoris. This was tensioned to open up the direct anterior interval and the lateral circumflex vessels were identified and coagulated using electrocautery. The floor of the TFL fascia was incised, exposing the pericapsular fat overlying the hip capsule. A second cobra retractor was placed on the inferior femoral neck. A double-bent soft tissue retractor was placed on the anterior wall of the acetabulum and used to tension the reflected head of rectus femoris, which was then released in order to limit soft tissue tension. A capsulotomy was made in the midline of the anterior hip capsule in line with the femoral neck ending at the vastus tubercle. The double-bent retractor was removed in order to limit the amount of time that a soft tissue retractor remained on the anterior wall and protect the femoral nerve. Tag stitches were placed in the superior and inferior leaflets of the hip capsule. An Phani soft tissue retractor was introduced over the tag stitches and tensioned in the interval between the rectus femoris and the TFL in order to retract and protect those muscles. The cobra retractors were replaced intracapsularly, with one over the superior neck in the pocket created by the base of the greater trochanter and the other on the femoral head. The capsulotomy was extended laterally to the base of the greater trochanter and medially to the lesser trochanter. This required externally rotating the hip. Once the lesser trochanter had been identified, a neck cut was planned according to measurements from preoperative templating. A ruler was cut at the length measured between the superior aspect of the lesser trochanter and the collar of the prosthesis. This line was extended towards the inferior aspect of the lateral cobra retractor to plan a cut which would leave minimal residual femoral neck laterally. The neck was cut at 60 degrees of external rotation along that line. A second cut was performed to remove a large napkin ring and facilitate head extraction. The napkin ring cut and femoral head were removed.?? A broad anterior wall retractor was placed between the labrum and the anterior capsule so that the anterior capsule would prevent capturing and pinching the femoral nerve anteriorly. An additional retractor was placed on the posterior wall. External rotation and traction were applied through the [place] table so that the cut surface of the femoral neck would not restrict access to the acetabulum. The labrum was excised sharply and the pulvinar was excised with electrocautery to limit bleeding from branches of the obturator artery. Acetabular reamers were selected based on preoperative templating and measurements of the excised femoral head. These were introduced into the acetabulum. Fluoroscopy was utilized to replicate a standing AP pelvis radiograph by centering over the pelvis, rotating until there was appropriate symmetry between the obturator foramen, and introducing caudal tilt to match the position of the pubic symphysis relative to the sacrococcygeal junction according to the patient?s anatomy. Fluoroscopy was utilized to ensure appropriate reaming depth. Once satisfied with the reaming depth corresponding to the preoperative template and the pinch fit between the columns, an appropriate sized acetabular cup was selected which would provide 1 mm of press-fit. This cup was introduced and manipulated until appropriate abduction and anteversion angles were obtained with careful attention to appropriate abduction and anteversion angles as evaluated by the position of the cup relative to the anterior and posterior naylor of the acetabulum and the AP fluoroscopy which recreated the patient?s standing radiograph. The cup was impacted into place. Peripheral osteophytes were removed. The acetabular liner was then placed with care to ensure locking of the locking mechanism.? Attention was then turned to the femur. All retractors were removed, traction was released, a retractor was placed in the interval between the hip capsule and the gluteus minimus, and the hip was externally rotated to 90 degrees. Traction was applied through the [place] table to tension the lateral capsule and this was released using electrocautery. Traction was released and a [place] hook was placed posteriorly around the proximal femur at the level of the vastus ridge. The table height was lowered in order to restrict the tension on the anterior structures during hip hyperextension to limit the risk of femoral nerve palsy. With traction off and the hip at 90 degrees of external rotation, the hip was hyperextended and adducted while manually elevating the femur away from the acetabulum with the [place] hook to ensure it would not be caught behind the greater trochanter. An asymmetric retractor was placed over the calcar and a broad double-pronged retractor was placed over the greater trochanter. The tag stitch capturing the lateral leaflet of the capsule was moved to the medial side, leaving the conjoined and piriformis tendons isolated in the face of the greater trochanter. The hip was externally rotated and elevated. A release of the conjoined tendon was necessary in order to obtain adequate exposure for broaching. The canal was opened with an opening broach and a rasp was used to remove cancellous bone. A rongeur was used to remove the residual lateral bone at the base of the greater trochanter to avoid placing the stem in varus. The femur was then broached to the appropriate sized stem yielding good rotational fit and fill of the canal as well as appropriate version of the stem trial. Neck and head trials were placed, all retractors were removed and the hip was returned to neutral abduction and extension. I then reduced the hip. Initial trialing was performed with a size 6 broach, a high offset neck and a +5 head. I initially manually externally rotated the hip and found no instability.. I then locked the hip in 45 degrees of external rotation and dropped it to the floor with traction off which demonstrated no instability. An AP pelvis fluoroscopic image matching the preoperative standing radiograph with both lesser trochanters visible and both hips in 40 degrees of external rotation demonstrated that the operative site was slightly long. AP and lateral hip fluoroscopic images were obtained to evaluate the broach size which demonstrated good canal fill. The hip was dislocated and I returned to the broaching position. Based on my evaluation during initial trialing I planned to place these definitive implants. The definitive stem was placed and the trunnion was cleaned and dried. I placed a ceramic head onto the trunnion and impacted it into place on the Yuan taper.?? All retractors were removed and the hip was reduced. A dilute mixture of betadine and peroxide was used to bathe the soft tissues during final fluoroscopic assessment. Appropriate component positioning was confirmed on an AP pelvis radiograph with the operative and nonoperative legs in 40 degrees of external rotation, evaluating leg length and offset. Appropriate stem fill was evaluated on AP and lateral hip radiographs. No fractures were identified on these radiographs. There was no hip instability with maximum (105?) external rotation as well as a 45 degree drop test. The hip was copiously irrigated with pulse lavage. The capsule was closed with absorbable interrupted suture. The TFL fascia was closed with barbed suture while carefully protecting the lateral femoral cutaneous nerve from entrapment. A mixture of Ropivacaine, Epinephrine, Clonidine and Toradol was infiltrated throughout the soft tissues. The skin was closed with 2-0 and 3-0 sutures. Surgical glue was applied and a soft dressing was placed.??The sponge, instrument and needle counts were reported as being correct at the end of the case.??No obvious complications occurred. The patient was transferred from the [place] table back to a stretcher. The patient emerged from anesthesia without difficulty and was taken to the PACU in a stable condition.? Plan for aftercare: Anterior hip precautions Weightbearing as tolerated Aspirin 81 twice per day for DVT prophylaxis Anticipate discharge home today Change into normal clothes upon arrival on the hospital floor Mobilize in the halls as much as is logistically possible. If physical therapy is unavailable for mobilization, then patient should mobilize with nursing staff Multimodal pain regimen with no IV opioids ordered Apply ice machine to operative hip. Ensure that sufficient ice is in the chamber for the pad to remain cold Follow up at [facility] in 2 weeks Detailed postoperative instructions available at [email or web address]
[2024-08-23] MEDS: OXYCODONE IR 5 MG TABLET PO ×2 (11:13→15:10)
[2024-08-23] MEDS: ACETAMINOPHEN 325 MG TABLET 650 MG PO (11:46)
[2024-08-23] MEDS: IBUPROFEN 600 MG TABLET PO (11:46)
[2024-08-23] MEDS: LACTATED RINGERS 1,000 ML 100 ML IV (11:46)
[2024-08-23] MEDS: TRAMADOL 50 MG TABLET PO (12:20)
[2024-08-23] MEDS: ONDANSETRON 4 MG ODT PO (14:21)
--- NOTE | 2024-08-23 15:06 | PT.IIE ---
Current Diagnoses Unilateral primary osteoarthritis, right hip (08/23/24) Surgery Performed Operation Date: 08/23/24 07:45 Actual Procedures p Total Hip Arthroplasty/Anterior Approach(Right) - Kg Morales MD Surgical History (Last Updated 08/19/24 @ 10:06 by Audelia Santiago, RN) Bone marrow donor (~2013) H/O vasectomy History of hip surgery Medical History (Last Updated 08/19/24 @ 10:06 by Audelia Santiago, RN) ADHD TAMMY on CPAP Osteoarthritis Psoriasis Physical Therapy Inpatient Evaluation/Re-Eval M1 PT/OT-IP Prior Functional Status Start: 08/23/24 13:43 Freq: NEEDED Status: Active Protocol: Document 08/23/24 13:42 MB (Rec: 08/23/24 15:06 MB [id number]) Medical Review Prior Functional Status Medical History Reviewed Yes Diet/Fluid Consistency Regular Communication WNLs Mobility and Gait I, works Social History Household Members spouse,children Living Arrangements House Number of Floors (Floors) One Floor Number of Stairs To Enter/Railing? 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 M2 PT-IP Current Condition Start: 08/23/24 13:43 Freq: NEEDED Status: Active Protocol: Document 08/23/24 13:42 MB (Rec: 08/23/24 15:06 MB [id number]) Physical Therapy Current Condition Current Condition Evaluation Date 08/23/24 Treatment Diagnosis Right total hip replacement M3 PT-IP Subjective Start: 08/23/24 13:43 Freq: NEEDED Status: Active Protocol: Document 08/23/24 13:42 MB (Rec: 08/23/24 15:06 MB [id number]) Subjective Physical Therapy Visit Type Type Initial Evaluation Visit Start Time 13:42 Visit Stop Time 14:04 Number of SCHO[employer] SOC[employer] WORKER Visits 0 Physical Therapy Visit Comments Patient Comments Pt states he is ready to mobilize Therapy Pain Assessment Pain When Pain Assessed At Rest Pain Present Pain Present Denied Pain M4 PT-IP Mobility and Gait Start: 08/23/24 13:43 Freq: NEEDED Status: Active Protocol: Document 08/23/24 13:42 MB (Rec: 08/23/24 15:06 MB [id number]) PT-Bed Mobility Assessment Rolling Level of Assist Independent Supine to Sit Supine to Sit Independent Scooting Scooting to Edge of Bed Independent PT-Transfer Assessment Sit to and From Stand Sit to and from Stand Standby Assistance Equipment Transfer Assistive Device Gait Belt,Front Wheeled Walker Orthotic/Prosthetic Devices or Brace: No Transfers Transfer Destination Chair Transfer Technique Ambulation Transfer Ability Level of Assist Standby Assistance Comments Mobility Comments SBA for first time up and pt is not orthostatic and BP is WNLs Gait Assessment Gait Gait Assistance Required: Standby Assistance Distance (Feet) 150 Able to Maintain Weight Bearing Status Yes During Gait Assistive Devices Assistive Device Gait Belt,Front Wheeled Walker Orthotic/Prosthetic Devices or Brace: No Gait Deviations General Gait Pattern Antalgic,Decreased Stride Length,Step-to Gait Factors Limiting Gait Function Factors Limiting Gait Function Decreased Activity Tolerance, Decreased Strength,Limited Range of Motion Comments Gait Comments Pt with step-to pattern and right leg with functionally increased leg length in first gait trial and pt remarks about this PT-Balance Assessment Sitting Balance and Reactions Static Sitting Balance Ability Normal Dynamic Sitting Balance Ability Normal Standing Balance and Reactions Static Standing Balance Ability Normal Dynamic Standing Balance Ability Good Device Used RW M5 PT-IP Objective Assessments Start: 08/23/24 13:43 Freq: NEEDED Status: Active Protocol: Document 08/23/24 13:42 MB (Rec: 08/23/24 15:06 [id number]) Orientation Orientation/Cognition Level of Alertness Alert Orientation Name,Age,Birthday,Month,Date, Year,Day of Week,Place, Situation Language Function Ability No Deficits Noted Safety Awareness Understands Safety Issues Memory Description No Deficits Noted Gross Range of Motion Upper Extremity ROM Assessment Within Functional Limits Lower Extremity ROM Assessment Right Impaired Strength Upper Extremity Strength Assessment Within Functional Limits Lower Extremity Strength Assessment Right Impaired Coordination Assessment Assessment Coordination Comments NT Sensation Assessment Comments Sensation Comments Pt reports he has feeling in leg post-op M6 PT-IP Treatment Start: 08/23/24 13:43 Freq: NEEDED Status: Active Protocol: Document 08/23/24 13:42 MB (Rec: 08/23/24 15:06 MB [id number]) Physical Therapy Treatment Exercises Exercises Ankle Pumps,Gluteal Sets,Quad Sets,Heel Slides Education Education Provided Precautions Other Treatments Other Treatment Performed Ed pt in no hyperextension right leg and safety with gait and the benefits of RW to work on normal gait pattern, importance of not falling M7 PT-IP Assessment and Plan Start: 08/23/24 13:43 Freq: NEEDED Status: Active Protocol: Document 08/23/24 13:42 MB (Rec: 08/23/24 15:06 MB [id number]) PT Summary Assessment and Plan Potential Rehabilitation Potential Excellent Status of Condition at Evaluation Evolving Summary Impairments ROM,Strength,Balance,Gait Progress Towards Goals Progressing Toward Goals Assessment Summary Pt is a 48 y/o male presenting same day right anterior THR. He had a previous left anterior THR at outside facility last year. His mobility looks good post-op and he will d/c home with his . he did not set up OPPT before surgery and ed pt to set this up a.s.a.p. Recommend up with nsg clearance. Frequency of Treatment Frequency Of Treatment Discharge Precautions Other Precautions No hyperextension right hip Weight Bearing Status Weight Bearing Status Weight Bear as Tolerated Recommendations To Nursing Amount of Assist Needed Standby Assistance Discharge Recommendations PT Discharge Recommendations Home with Assistance, Outpatient PT Transportation Needs at Discharge Private Vehicle
--- NOTE | 2024-08-23 16:16 | PM.PN.1 ---
Subjective Subjective Interval history: I saw Monty postoperatively. He was resting comfortably in a chair. He had passed physical therapy and mobilized well. His pain was well-controlled. He had intact sciatic and femoral nerve function and a clean dressing. He is going to discharge home this evening. [place] recent to the [facility] in [place] so that he can have those this evening. Exam Vital Signs (past 8 hours): - 08/23/24 10:30 08/23/24 10:35 08/23/24 10:40 Temperature 97 F L Pulse Rate 100 H 95 H 89 Respiratory Rate 24 13 14 Blood Pressure 128/51 L 116/76 115/72 Pulse Oximetry 99 100 100 Oxygen Delivery Method Room Air Room Air Room Air Oxygen Flow Rate 08/23/24 10:45 08/23/24 11:00 08/23/24 11:08 Temperature 98.2 F Pulse Rate 86 80 83 Respiratory Rate 10 L 12 12 Blood Pressure 116/80 90/55 L 97/60 Pulse Oximetry 100 96 100 Oxygen Delivery Method Room Air Room Air Room Air Oxygen Flow Rate 08/23/24 11:25 Temperature 97.8 F Pulse Rate 71 Respiratory Rate 14 Blood Pressure 96/62 Pulse Oximetry 100 Oxygen Delivery Method Oxygen Flow Rate 0 Oxygen Delivery Method Room Air Oxygen Flow Rate 0 PFSH Medical History (Updated 08/19/24 @ 10:06 by Audelia Santiago RN) ADHD Psoriasis Osteoarthritis TAMMY on CPAP Surgical History (Updated 08/19/24 @ 10:06 by Audelia Santiago RN) History of hip surgery H/O vasectomy Bone marrow donor (~2013) Social History (Updated 02/10/19 @ 11:07 by Nohemy Zarco DO) household members: spouse and children Smoking Status: Current some day smoker alcohol intake: current substance use type: does not use Assessment & Plan Time-Based Coding :: [TOTAL MINUTES] spent with patient and on the chart (including review of chart, obtaining history, exam, reviewing outside data, placing orders, documenting exam and treatment plan, and counseling patient) on [DATE]. Quality VTE Deep Vein Thrombosis/Pulmonary Embolism Present on Admission: No
--- NOTE | 2024-08-23 16:31 | PC.NURSE ---
Day shift: Discharge instructions gone over with patient and patient's spouse. All questions answered, patient stated understanding. PIV removed prior to d/c. All belongings with patient. PCT Rafa escorted patient via wheelchair to exit.
== END 2024-08-23 14:32 | disposition home or self-care (01) ==
LOC: OR 06:46 → AC 10:55
PROVIDERS: Referring Provider Orthopaedic Surgery Adult Reconstructive Orthopaedic Surgery; Visit Provider Orthopaedic Surgery Adult Reconstructive Orthopaedic Surgery
PROC: (CPT 27130; principal; 2024-08-23 07:45)
DX: M16.11 Unilateral primary osteoarthritis, right hip (principal); G47.33 Obstructive sleep apnea (adult) (pediatric); F17.210 Nicotine dependence, cigarettes, uncomplicated; M25.751 Osteophyte, right hip
CPT/HCPCS: 27130; 73502; 76000; 97161; C1776; J0690; J2250; J2405; J2704